=== PATIENT | male | born 1960 | race Caucasian/White ===

== ENCOUNTER → 2017-02-25 10:59 | Outpatient (CLI) | payer MEDICAID, SELFPAY ==
[2017-02-25 12:49] LABS: Alanine Aminotransferase 41 U/L (12-78); Albumin Level 3.7 gm/dL (3.4-5.0); Alkaline Phosphatase 94 U/L (46-116); Anion Gap 10.4 mEq/L (5-15); Aspartate Amino Transferase 23 U/L (15-37); Bilirubin,Total 0.8 mg/dL (0.2-1.0); Blood Urea Nitrogen 17 mg/dL (7-18); Calcium 8.8 mg/dL (8.5-10.1); Carbon Dioxide 30 mmol/L (21.0-32.0); Chloride 102 mmol/L (98-107); Creatinine,Serum 0.93 mg/dL (0.70-1.30); Estimated Glomerular Filt Rate 84 ml/min (>60); GFR (African American) 101 ML/MIN (>60); Globulin 3.7 gm/dl (1.3-3.2); Glucose 117 mg/dL (74-106); Potassium 4.4 mmoL/L (3.5-5.1); Sodium 138 mmol/L (136-145); Total Protein,Serum 7.4 gm/dL (6.4-8.2)
== END ==
PROVIDERS: PCP Family Medicine; Visit Provider Physician Assistant
DX: B19.20 Unspecified viral hepatitis C without hepatic coma (principal); Z79.899 Other long term (current) drug therapy
CPT/HCPCS: 36415; 80053; 82776

== ENCOUNTER → 2017-04-15 08:20 | Outpatient (CLI) | payer MEDICAID, SELFPAY ==
[2017-04-15 09:14] LABS: Alanine Aminotransferase 38 U/L (12-78); Albumin Level 3.9 gm/dL (3.4-5.0); Alkaline Phosphatase 74 U/L (46-116); Anion Gap 7.2 mEq/L (5-15); Aspartate Amino Transferase 22 U/L (15-37); Bilirubin,Total 1.1 mg/dL (0.2-1.0); Blood Urea Nitrogen 25 mg/dL (7-18); Calcium 8.8 mg/dL (8.5-10.1); Carbon Dioxide 31 mmol/L (21.0-32.0); Chloride 103 mmol/L (98-107); Creatinine,Serum 1.03 mg/dL (0.70-1.30); Estimated Glomerular Filt Rate 74 ml/min (>60); GFR (African American) 90 ML/MIN (>60); Globulin 3.9 gm/dl (1.3-3.2); Glucose 93 mg/dL (74-106); Potassium 4.2 mmoL/L (3.5-5.1); Sodium 137 mmol/L (136-145); Total Protein,Serum 7.8 gm/dL (6.4-8.2)
[2017-04-15 10:20] LABS: Basophils % 0.5 % (0.1-2.0); Eosinophils # 0.1 K/mm3 (0.0-0.4); Eosinophils % 1.2 % (0.1-12.0); Hematocrit 44.6 % (42.0-52.0); Hemoglobin 15.3 g/dL (14.1-18.0); Lymphocytes # 2.6 K/mm3 (0.7-4.5); Lymphocytes % 36.1 K/mm3 (10-50); Mean Corpuscular HGB Conc 34.3 g/dL (31.8-35.4); Mean Corpuscular Volume 93.1 fl (80-94); Mean Platelet Volume 8.7 fl (7.4-10.4); Monocytes # 0.5 K/mm3 (0.1-1.0); Monocytes % 6.7 % (1.7-9.3); Neutrophils % 55.4 % (37.0-80.0); Platelet Count 211 K/mm3 (142-424); Red Blood Count 4.79 M/mm3 (4.60-6.20); Red Cell Distribution Width 13.2 % (11.5-17.5); White Blood Count 7.2 K/mm3 (4.8-10.8)
== END ==
PROVIDERS: Visit Provider Physician Assistant
DX: B19.20 Unspecified viral hepatitis C without hepatic coma (principal); Z79.899 Other long term (current) drug therapy
CPT/HCPCS: 36415; 80053; 85025

== ENCOUNTER → 2017-05-24 09:20 | Outpatient (CLI) | payer MEDICAID, SELFPAY ==
[2017-05-24 10:05] LABS: Basophils % 0.5 % (0.1-2.0); Eosinophils # 0.1 K/mm3 (0.0-0.4); Eosinophils % 0.9 % (0.1-12.0); Hematocrit 47.2 % (42.0-52.0); Hemoglobin 16.2 g/dL (14.1-18.0); Lymphocytes # 2.4 K/mm3 (0.7-4.5); Lymphocytes % 38.4 K/mm3 (10-50); Mean Corpuscular HGB Conc 34.3 g/dL (31.8-35.4); Mean Corpuscular Hemoglobin 31.2 pg (27.0-31.2); Mean Corpuscular Volume 90.9 fl (80-94); Mean Platelet Volume 8.3 fl (7.4-10.4); Monocytes # 0.4 K/mm3 (0.1-1.0); Monocytes % 6.4 % (1.7-9.3); Neutrophils # 3.4 K/mm3 (1.8-7.8); Neutrophils % 53.8 % (37.0-80.0); Platelet Count 207 K/mm3 (142-424); Red Blood Count 5.19 M/mm3 (4.60-6.20); White Blood Count 6.3 K/mm3 (4.8-10.8)
[2017-05-24 10:14] LABS: INR 0.99 (0.9-1.1); Prothrombin Time 10.7 seconds (9.4-11.8)
[2017-05-24 12:47] LABS: Alanine Aminotransferase 27 U/L (12-78); Albumin Level 4.1 gm/dL (3.4-5.0); Albumin/Globulin Ratio 1.2 (1.1-1.8); Alkaline Phosphatase 81 U/L (46-116); Anion Gap 14.3 mEq/L (5-15); Aspartate Amino Transferase 20 U/L (15-37); Bilirubin,Total 0.8 mg/dL (0.2-1.0); Blood Urea Nitrogen 18 mg/dL (7-18); Calcium 8.9 mg/dL (8.5-10.1); Carbon Dioxide 26 mmol/L (21.0-32.0); Chloride 107 mmol/L (98-107); Creatinine,Serum 0.92 mg/dL (0.70-1.30); Estimated Glomerular Filt Rate 85 ml/min (>60); GFR (African American) 103 ML/MIN (>60); Globulin 3.5 gm/dl (1.3-3.2); Glucose 100 mg/dL (74-106); Potassium 4.3 mmoL/L (3.5-5.1); Sodium 143 mmol/L (136-145); Total Protein,Serum 7.6 gm/dL (6.4-8.2)
[2017-05-25 14:08] LABS: Hep A Ab, IgM Negative (Negative); Hepatitis B Core Antibody IgM Negative (Negative); Hepatitis B Surface Antigen Negative (Negative)
[2017-05-27 06:15] LABS: Hepatitis C Antibody >11.0 s/co ratio (0.0-0.9)
== END ==
PROVIDERS: Visit Provider Physician Assistant
DX: Z00.00 Encounter for general adult medical examination without abnormal findings (principal); B19.20 Unspecified viral hepatitis C without hepatic coma
CPT/HCPCS: 36415; 80053; 80074; 85025; 85610

== ENCOUNTER → 2017-07-28 09:17 | Outpatient (CLI) | payer MEDICAID, SELFPAY ==
[2017-07-28 10:12] LABS: Basophils % 0.3 % (0.1-2.0); Eosinophils # 0.1 K/mm3 (0.0-0.4); Hematocrit 45.6 % (42.0-52.0); Hemoglobin 15.2 g/dL (14.1-18.0); Lymphocytes % 34.4 K/mm3 (10-50); Mean Corpuscular HGB Conc 33.3 g/dL (31.8-35.4); Mean Corpuscular Hemoglobin 30.2 pg (27.0-31.2); Mean Corpuscular Volume 90.9 fl (80-94); Mean Platelet Volume 7.9 fl (7.4-10.4); Monocytes # 0.4 K/mm3 (0.1-1.0); Monocytes % 7.2 % (1.7-9.3); Neutrophils # 3.3 K/mm3 (1.8-7.8); Neutrophils % 57.1 % (37.0-80.0); Platelet Count 208 K/mm3 (142-424); Red Blood Count 5.01 M/mm3 (4.60-6.20); Red Cell Distribution Width 13.2 % (11.5-17.5); White Blood Count 5.8 K/mm3 (4.8-10.8)
[2017-07-28 12:41] LABS: Alanine Aminotransferase 29 U/L (12-78); Albumin Level 4.2 gm/dL (3.4-5.0); Albumin/Globulin Ratio 1.2 (1.1-1.8); Alkaline Phosphatase 69 U/L (46-116); Anion Gap 13.1 mEq/L (5-15); Aspartate Amino Transferase 22 U/L (15-37); Bilirubin,Total 1.2 mg/dL (0.2-1.0); Blood Urea Nitrogen 21 mg/dL (7-18); Calcium 9.1 mg/dL (8.5-10.1); Carbon Dioxide 29 mmol/L (21.0-32.0); Chloride 104 mmol/L (98-107); Estimated Glomerular Filt Rate 77 ml/min (>60); GFR (African American) 93 ML/MIN (>60); Globulin 3.4 gm/dl (1.3-3.2); Glucose 104 mg/dL (74-106); Potassium 4.1 mmoL/L (3.5-5.1); Sodium 142 mmol/L (136-145); Total Protein,Serum 7.6 gm/dL (6.4-8.2)
== END ==
PROVIDERS: Visit Provider Physician Assistant
DX: Z00.00 Encounter for general adult medical examination without abnormal findings (principal); B19.20 Unspecified viral hepatitis C without hepatic coma
CPT/HCPCS: 36415; 80053; 85025; 87522

== ENCOUNTER 2020-01-13 09:04 | Emergency (ER) | payer OTHER, SELFPAY ==
[2020-01-13 09:04] VITALS: BP 148/100; PULSE 81; RESP 16; TEMP 36.8; O2SAT 98; BMI 31.2
[2020-01-13 09:19] VITALS: BP 143/100; PULSE 74; RESP 16; O2SAT 98; BMI 31.2
--- NOTE | 2020-01-13 09:23 | HMH.EDUTC ---
[facility] [place] Impression: Abdominal pain Qualifiers: Abdominal location: unspecified location Qualified Code(s): R10.9 - Unspecified abdominal pain Disposition: Still a Patient Condition on Discharge: Good Referrals: Osmin Robb MD [Primary Care Provider] - Time of Disposition: 09:33 Medical Decision Making - Jorge A Inquiry Pt receiving controlled substance: No Jorge A was queried for this patient: No Vital Signs: 01/13/20 09:19 Pulse Rate [Right] 74 Respiratory Rate 16 Blood Pressure [Right Arm] 143/100 H Blood Pressure Mean [Right Arm] 114 Blood Pressure Source [Right Arm] Automatic Cuff Blood Pressure Position [Right Arm] Sitting 02 Sat by Pulse Oximetry 98 Oxygen Delivery Method Room Air Medical Decision Narrative: Discussed with patient and he agreed transfer to ED for further work up and evaluation due to abdominal pain and swelling and patient agreed Called ED spoke with Mary CAVAZOS and patient was moved to room 9 [facility] [place] - General Stated complaint: Stomach pain Time Seen by Provider: 01/13/20 09:23 Mode of Arrival: Ambulatory Source of Information: Patient Limitations: No Limitations Description of Symptoms (Recalled from Triage Doc. by RN): Pt c/o sharp abd pains that started last night. Advises it feels like he needs to go to the bathroom but can't. Advises the pain started on the left side and is now through the abd HEENT Symptoms (Recalled from RN notes): No Resp Symptoms (Recalled from RN notes): No Skin Symptoms (Recalled from RN notes): No MS Symptoms (Recalled from RN notes): No Functional Status (Recalled from RN notes): na - History of Present Illness Provider Complaint: Patient states that yesterday he was working and felt a sharp pain in his left upper abdomen area that was lasted about 10 min then started moving throughout his abdomen State that he feels like his stomach is swollen and states feels like he is going to have to go to bathroom and cant States that he did have a med sized BM earlier but didnt help and states that pain is sharp at times but is continuous dull achy like pain. State that he was treated for Hep C years ago and was told he was cleared. 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 I have reviewed the patient's past medical history: Yes ROS Obtained: Yes All systems reviewed & no additional complaints, Yes Systems reviewed as appropriate & no additional complaints - Constitutional Constitutional: Reports system reviewed and no additional complaints, except as docu, Denies body ache, Denies chills, Denies fever(s) - Cardiovascular Cardiovascular: Reports system reviewed and no additional complaints, except as docu - Respiratory Respiratory: Yes system reviewed and no additional complaints, except as docu - Gastrointestinal Gastrointestingal: Reports: abdominal pain, bloating, cramping. Denies: diarrhea, vomiting blood, bright red blood in stools Comments: Reports swelling in abdomen, pain that started on left upper quad that has since moved throughout abdomen and reports bloating like feeling Last BM about 30min ago Physical Exam - General General appearance: alert, in no apparent distress - Respiratory Respiratory exam: Present: normal lung sounds bilaterally. Absent: respiratory distress - Cardiovascular Cardiovascular exam: Present: regular rate, nor
--- NOTE | 2020-01-13 09:37 | CT_ITS ---
PROCEDURE: CT ABDOMEN PELVIS W CON CLINICAL INDICATION: pain Abdominal pain and swelling with cramping on the left side COMPARISON: No exams were available for comparison TECHNIQUE: IV Contrast: 75ML Isovue 370 Oral Contrast None Axial images obtained with sagittal and coronal reformats. All CT scans at the facility use one or more dose reduction, viz: automated exposure control, ma/kV adjustment per patient size (including targeted exams where dose is matched to indication, i.e. head), or iterative reconstruction technique. FINDINGS: LOWER THORAX: No acute finding ABDOMEN & PELVIS: The liver, gallbladder, spleen, adrenal glands, and pancreas have an unremarkable appearance. There is a 12 mm cortical cyst of the right kidney. There is an exophytic 2.4 cm cyst of the left kidney. No renal or ureteral calculi. No hydronephrosis. No evidence of appendicitis intestinal obstruction or free air. There are scattered air-fluid levels within nondistended large bowel. Colonic diverticulosis is present. There is some minimal haziness of the pericolic fat in the sigmoid region with minimal thickening of a sigmoid diverticula suggesting mild acute diverticulitis. No abscess or perforation apparent. There is increased density in the right inguinal area consistent with prior inguinal hernia repair. No acute bony findings are evident. There is a bone island in the right ilium IMPRESSION: 1. Mild sigmoid diverticulitis with colonic diverticulosis. No abscess or perforation 2. Bilateral renal cysts Dictated by: Miguel Alva MD 01/13/2020 12:39 Miguel Alva MD in [place] 01/13/2020 12:39
[2020-01-13 09:46] LABS: Microscopic, Urine URINE MICROSCOPIC (MICROSCOPIC)
[2020-01-13 09:53] LABS: Basophils % 0.4 % (0.1-2.0); Eosinophils # 0.1 K/mm3 (0.0-0.4); Eosinophils % 0.9 % (0.1-12.0); Hematocrit 48.2 % (42.0-52.0); Hemoglobin 16.1 g/dL (14.1-18.0); Lymphocytes # 3.2 K/mm3 (0.7-4.5); Lymphocytes % 32.4 % (10-50); Mean Corpuscular HGB Conc 33.4 g/dL (31.8-35.4); Mean Corpuscular Hemoglobin 30.9 pg (27.0-31.2); Mean Corpuscular Volume 92.3 fl (80-94); Mean Platelet Volume 8.4 fl (7.4-10.4); Monocytes # 0.6 K/mm3 (0.1-1.0); Monocytes % 5.7 % (1.7-9.3); Neutrophils # 5.9 K/mm3 (1.8-7.8); Neutrophils % 60.4 % (37.0-80.0); Platelet Count 239 K/mm3 (142-424); Red Blood Count 5.22 M/mm3 (4.60-6.20); Red Cell Distribution Width 13.7 % (11.5-17.5); White Blood Count 9.8 K/mm3 (4.8-10.8)
[2020-01-13 09:55] LABS: Chloride 102 mmol/L (98-107); Potassium 4.7 mmoL/L (3.5-5.1); Sodium 140 mmol/L (136-145)
[2020-01-13 09:58] LABS: Alanine Aminotransferase 26 U/L (12-78); Albumin Level 4.9 g/dl (3.5-5.0); Albumin/Globulin Ratio 1.5 (1.1-1.8); Alkaline Phosphatase 74 U/L (38-126); Amylase 73 U/L (30-110); Anion Gap 11.7 mEq/L (5-15); Aspartate Amino Transferase 30 U/L (17-59); Bilirubin,Total 0.8 mg/dl (0.2-1.3); Blood Urea Nitrogen 15 mg/dl (9-20); Calcium 9.7 mg/dl (8.4-10.2); Carbon Dioxide 31 mmol/L (22.0-30.0); Creatinine Clearance Estimated 142 mL/min (50-200); Estimated Glomerular Filt Rate 86 ml/min (>60); GFR (African American) 105 ML/MIN (>60); Globulin 3.2 g/dL (1.3-3.2); Glucose 104 mg/dl (74-100); Lipase 115 U/L (23-300); Total Protein,Serum 8.1 g/dl (6.3-8.2)
--- NOTE | 2020-01-13 09:59 | HMH.EDGENADL ---
ED Disposition Clinical Impression: Diverticulitis Disposition: Home, Self-Care Condition on Discharge: Good Instructions: DI for Diverticulitis Additional Instructions: Cipro and Flagyl as prescribed. Tylenol or ibuprofen for pain. Return to the emergency department if severe pain, repetitive vomiting, or fever greater than 100.5 degrees. Follow-up with your primary care provider next week. Prescriptions: Ciprofloxacin HCl [Ciprofloxacin 500mg Tab] 500 mg PO BID #20 tab Transmission Status: Pending to [facility] # metroNIDAZOLE [Flagyl] 500 mg PO TID #30 tab Transmission Status: Pending to [facility] # Referrals: Osmin Robb MD [Primary Care Provider] - - Critical Care Critical Care Time: No Attestation: On 01/13/20, the high probability of a clinically significant, sudden or life threatening deterioration of the following system(s) required my full and direct attention, intervention and personal management. The time I documented below is in addition to time spent performing reported procedures but includes the following listed in this critical care notation. Medical Decision Making - Jorge A Inquiry Pt receiving controlled substance: No Vital Signs: 01/13/20 09:04 01/13/20 09:19 Temperature 98.2 F Temperature Source Oral Pulse Rate [Right] 81 74 Respiratory Rate 16 16 Blood Pressure [Right Arm] 148/100 H 143/100 H Blood Pressure Mean [Right Arm] 116 114 Blood Pressure Source [Right Arm] Automatic Cuff Blood Pressure Position [Right Arm] Sitting Sitting 02 Sat by Pulse Oximetry 98 98 Oxygen Delivery Method Room Air Room Air - Lab Data Lab Results 01/13/20 09:30: Urine Color Yellow, Urine Appearance Clear, Urine pH 6.0, Ur Specific Anderson 1.020, Urine Protein Negative, Urine Glucose (UA) Negative, Urine Ketones Negative, Urine Blood Negative, Urine Nitrate Negative, Urine Bilirubin Negative, Urine Urobilinogen 0.2, Ur Leukocyte Esterase Negative, Urine RBC Occasional, Urine WBC 3-5, Ur Squamous Epith Cells None, Urine Bacteria Trace 01/13/20 09:40: WBC 9.8, RBC 5.22, Hgb 16.1, Hct 48.2, MCV 92.3, MCH 30.9, MCHC 33.4, RDW 13.7, Plt Count 239, MPV 8.4, Neut % (Auto) 60.4, Lymph % (Auto) 32.4, [place] % (Auto) 5.7, Eos % (Auto) 0.9, Baso % (Auto) 0.4, Neut # (Auto) 5.9, Lymph # (Auto) 3.2, [place] # (Auto) 0.6, Eos # (Auto) 0.1, Baso # (Auto) 0.0 01/13/20 09:40: Sodium 140, Potassium 4.7, Chloride 102, Carbon Dioxide 31 H, Anion Gap 11.7, BUN 15, Creatinine 0.90, Estimated Creat Clear 142, Estimated GFR 86, Est GFR ( Amer) 105, Glucose 104 H, Calcium 9.7, Total Bilirubin 0.8, AST 30, ALT 26, Alkaline Phosphatase 74, Total Protein 8.1, Albumin 4.9, Globulin 3.2, Albumin/Globulin Ratio 1.5, Amylase 73, Lipase 115 Result diagrams: 01/13/20 09:40 01/13/20 09:40 Orders (Tests/Meds): ED MEDICATIONS Generic Name Dose Route Start Last Admin Trade Name Frepenny PRN Reason Stop Dose Admin Sodium Chloride 8 ml 01/13/20 09:44 01/13/20 09:47 Sodium Chloride 0.9% 10ml Vial IV 02/12/20 09:43 8 ml NEEDED PRN Administration dilute pepcid Discontinued Medications Generic Name Dose Route Start Last Admin Trade Name Freq PRN Reason Stop Dose Admin Famotidine 20 mg 01/13/20 09:44 01/13/20 09:47 Famotidine 20mg/2ml Vial IV 01/13/20 09:45 20 mg ONCE ONE Administration Iopamidol 75 ml 01/13/20 10:31 01/13/20 10:32 Iopamidol-370 (76%);100ml Bottle IV 01/13/20 10:32 75 ml ONCE ONE Administration Ondansetron HCl 4 mg 01/13/20 09:44 01/13/20 09:47 Ondansetron 4mg/2ml Vial IV 01/13/20 09:45 4 mg ONCE ONE Administration Sodium Chloride 10 ml 01/13/20 10:31 01/13/20 10:32 Sodium Chloride 0.9% 10ml Syr (Rad Only) IV 01/13/20 10:32 10 ml ONCE ONE Administration ORDERS Category Date Time Status CT abdomen pelvis w con Stat Cat Scan 01/13/20 09:37 Taken - CT Data CT Scan: Abdomen, Pelvis Time
[2020-01-13 10:20] LABS: Appearance,Urine CLEAR (Clear); Bilirubin,Urine Negative (Negative); Blood, Urine Negative (Negative); Color,Urine YELLOW (Yellow); Glucose,Urine (UA) Negative (Negative); Ketones,Urine Negative (Negative); Leukocyte Esterase,Urine Negative (Negative); Nitrate,Urine Negative (Negative); Protein,Urine Negative (Negative); Urobilinogen,Urine 0.2 EU/dl (0.2)
[2020-01-13 10:40] LABS: Bacteria,Urine Trace /lpf; RBC,Urine Occasional #/hpf (0-3)
[2020-01-13 11:41] VITALS: BP 145/90; PULSE 78; RESP 18; TEMP 36.6; O2SAT 98
== END 2020-01-13 11:43 | disposition home or self-care (01) ==
LOC: UTC 09:07 → ER 09:22
PROVIDERS: Emergency Provider Emergency Medicine; PCP Family Medicine
DX: K57.92 Diverticulitis of intestine, part unspecified, without perforation or abscess without bleeding (principal)
CPT/HCPCS: 74177; 80053; 81001; 82150; 83690; 85025; 96374; 96375; 99283; J2405; Q9967

== ENCOUNTER 2020-05-20 16:20 | Emergency (ER) | payer OTHER, SELFPAY ==
[2020-05-20 16:40] VITALS: BP 132/85; PULSE 81; RESP 16; TEMP 36.7; O2SAT 97; BMI 29.2
--- NOTE | 2020-05-20 16:45 | HMH.EDUTC ---
[facility] [place] Impression: COVID-19 virus test result unknown Disposition: Home, Self-Care Condition on Discharge: Good Instructions: DI for COVID-19 (Suspected or Confirmed ), How to Care for Someone with COVID-19, Preventing the Spread of Coronavirus Discharge Instructions Additional Instructions: self isolate until test results are known to be neg Referrals: Osmin Robb MD [Primary Care Provider] - Time of Disposition: 16:48 Medical Decision Making - Jorge A Inquiry Pt receiving controlled substance: No Vital Signs: 05/20/20 16:40 Temperature 98.0 F Temperature Source Oral Pulse Rate [Right Brachial] 81 Respiratory Rate 16 Blood Pressure [Right Arm] 132/85 Blood Pressure Mean [Right Arm] 100 Blood Pressure Source [Right Arm] Automatic Cuff Blood Pressure Position [Right Arm] Sitting 02 Sat by Pulse Oximetry 97 Oxygen Delivery Method Room Air Orders (Tests/Meds): ORDERS Category Date Time Status Covid-19 Nasal PCR ([facility]) Routine Lab 05/20/20 16:40 Received [facility] [place] HPI - General Chief complaint: [facility] Stated complaint: Covid test Time Seen by Provider: 05/20/20 16:46 Mode of Arrival: Ambulatory Source of Information: Patient Limitations: No Limitations Description of Symptoms (Recalled from Triage Doc. by RN): covid test HEENT Symptoms (Recalled from RN notes): No Resp Symptoms (Recalled from RN notes): No Skin Symptoms (Recalled from RN notes): No MS Symptoms (Recalled from RN notes): No Functional Status (Recalled from RN notes): n/a - History of Present Illness Provider Complaint: 60 yr old male presnts for covid test. pt states no symptoms tested positive for covid - Related Data Home Medications Medication Instructions Recorded Confirmed buPROPion HCL [Wellbutrin XL] 300 mg PO DAILY 01/13/20 05/20/20 Allergies Allergy/AdvReac Type Severity Reaction Status Date / Time No Known Allergies Allergy Verified 05/20/20 16:32 - Worker's Comp Is this a Worker's Comp case?: No [facility] History - Hepatitis A Screen Drug use history?: No High risk sexual behaviors?: No History of sexually transmitted infection?: No Currently employed?: No Childcare worker?: No Do you have indoor plumbing?: Yes Do you have electricity?: Yes Attestation statement:: This patient has been screened for Hepatitis A risk factors. I have reviewed the patient's past medical history: Yes Medical History: Denies:: Internal Pacemaker Other Surgeries: No: Pacemaker - Social History Smoking Status: Never smoker Alcohol Intake: never Occupational Status: employed Housing: house Household Members: spouse, family ROS Obtained: Yes Systems reviewed as appropriate & no additional complaints - Constitutional Constitutional: Reports system reviewed and no additional complaints, except as docu, Denies fever(s) - Eyes Eyes: Reports system reviewed and no additional complaints, except as docu, Denies change in vision - ENT Ears, Nose, Mouth, and Throat: Reports system reviewed and no additional complaints, except as docu, Denies sore throat - Cardiovascular Cardiovascular: Reports system reviewed and no additional complaints, except as docu, Denies chest pain at rest - Respiratory Respiratory: Reports system reviewed and no additional complaints, except as docu, Denies change in phlegm color - Gastrointestinal Gastrointestingal: Reports: system reviewed and no additional complaints, except as docu. Denies: bloating - Genitourinary Male Genitourinary: Reports system reviewed and no additional complaints, except as docu - Musculoskeletal Musculoskeletal: Reports system reviewed and no additional complaints, except as docu, Denies limited range of motion - Integumentary/Breasts Skin/Breast: Reports system reviewed and no additional complaints, except as docu, Denies rash - Neurologic Neurologic: Reports system reviewed and no additional com
[2020-05-20 16:56] VITALS: BP 132/85; PULSE 81; RESP 16; TEMP 36.7; O2SAT 97
== END 2020-05-20 16:56 | disposition home or self-care (01) ==
PROVIDERS: Emergency Provider Nurse Practitioner Family; PCP Family Medicine
DX: Z20.822 Contact with and (suspected) exposure to COVID-19 (principal)
CPT/HCPCS: 99202; G0463; U0003

== ENCOUNTER 2020-06-05 10:36 | Emergency (ER) | payer OTHER, SELFPAY ==
[2020-06-05 10:59] VITALS: BP 134/87; PULSE 83; RESP 19; TEMP 37; O2SAT 98; BMI 29.8
--- NOTE | 2020-06-05 11:18 | HMH.EDUTC ---
[facility] [place] Disposition Clinical Impression: Encounter for laboratory testing for COVID-19 virus Disposition: Home, Self-Care Condition on Discharge: Good Instructions: DI for COVID-19 (Suspected or Confirmed ), Coronavirus Disease 2019, Preventing the Spread of Coronavirus Discharge Instructions Additional Instructions: *Monitor Temp, Over the counter Motrin or Tylenol as directed/as needed Tylenol every 4 hours and Motrin every 6 hours (as long as your family doctor has told you that you can take it) for fever or pain. and straight to ER if unable to lower temp less than 101.0 after medication given Follow up IMMEDIATELY for new or worsening symptoms or no Noticeable improvement over the next 48-72 hours. 911 for difficulty breathing or swallowing You were tested for today for COVID19 your test result should be back in the next 24-48 hours, you may call to the [facility] to see if your test results are back in the next 48 hours [phone] [facility] hours are 9am-9pm You was given a handout with instructions for Self Quarantine and Self isolation for while you wait on test results and what to do if they are positive If you are positive the Health Dept will be contacting you also Prescriptions: Fluticasone Propionate [Flonase 50mcg nasal spray 16gm] 1 spr NS DAILY #1 bottle Transmission Status: Pending to [employer] #[id number] Referrals: Tree Mckinney MD [Primary Care Provider] - As needed Time of Disposition: 11:24 Medical Decision Making - Jorge A Inquiry Pt receiving controlled substance: No Jorge A was queried for this patient: No Vital Signs: 06/05/20 10:59 Temperature 98.6 F Temperature Source Oral Pulse Rate [Right Brachial] 83 Respiratory Rate 19 Blood Pressure [Right Arm] 134/87 Blood Pressure Mean [Right Arm] 102 Blood Pressure Source [Right Arm] Automatic Cuff Blood Pressure Position [Right Arm] Sitting 02 Sat by Pulse Oximetry 98 Oxygen Delivery Method Room Air Orders (Tests/Meds): ORDERS Category Date Time Status Covid-19 Nasal PCR ([facility]) Routine Lab 06/05/20 11:00 Received [facility] [place] HPI - General Stated complaint: covid test Time Seen by Provider: 06/05/20 11:18 Mode of Arrival: Ambulatory Source of Information: Patient Limitations: No Limitations Description of Symptoms (Recalled from Triage Doc. by RN): Covid test- cough, fever, body aches x2 days. was positive 3 weeks ago. 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 States that his was positive for COVID a few weeks ago States that he has been body aches, chills, feeling flush and unsure if he has had fever or not so he wanted to get tested - Related Data Home Medications Medication Instructions Recorded Confirmed buPROPion HCL [Wellbutrin XL] 300 mg PO DAILY 01/13/20 05/20/20 Previous Rx's Medication Instructions Recorded Fluticasone Propionate [Flonase 1 spr NS DAILY #1 bottle 06/05/20 50mcg nasal spray 16gm] Allergies Allergy/AdvReac Type Severity Reaction Status Date / Time No Known Allergies Allergy Verified 05/20/20 16:32 - Worker's Comp Is this a Worker's Comp case?: No [facility] History - Hepatitis A Screen Drug use history?: No High risk sexual behaviors?: No History of sexually transmitted infection?: No Currently employed?: No Childcare worker?: No Do you have indoor plumbing?: Yes Do you have electricity?: Yes Attestation statement:: This patient has been screened for Hepatitis A risk factors. I have reviewed the patient's past medical history: Yes Medical History: Denies:: Internal Pacemaker Other Surgeries: No: Pacemaker - Social History Smoking Status: Never smoker Alcohol I
[2020-06-05 11:36] VITALS: BP 134/87; PULSE 83; RESP 19; TEMP 37; O2SAT 98
--- NOTE | 2020-06-05 16:46 | PC.NURSE ---
PT NOTIFIED OF POSITIVE COVID RESULTS
== END 2020-06-05 11:37 | disposition home or self-care (01) ==
PROVIDERS: Emergency Provider Nurse Practitioner; PCP Family Medicine
DX: U07.1 COVID-19 (principal)
CPT/HCPCS: 99202; G0463; U0003

== ENCOUNTER → 2020-06-14 09:30 | Outpatient (CLI) | payer OTHER, SELFPAY ==
--- NOTE | 2020-06-14 09:40 | XR_ITS ---
PROCEDURE: XR CHEST PORTABLE CLINICAL HISTORY: COVID OUTPATIENT, PNEUMONIA DUE TO INFECTIOUS ORGANISM COMPARISON: No exams were available for comparison FINDINGS: The cardiomediastinal silhouette and pulmonary vascularity are within normal limits. There is increased density present in the right upper and right lower lung zone with ground-glass infiltrate in the left midlung. No obvious effusions. No acute bony abnormalities. IMPRESSION: Bilateral pneumonia Dictated by: Miguel Alva MD 06/14/2020 10:11 Miguel Alva MD in [place] 06/14/2020 10:11
== END ==
PROVIDERS: PCP Family Medicine; Visit Provider Family Medicine
DX: J18.9 Pneumonia, unspecified organism (principal)
CPT/HCPCS: 71045

== ENCOUNTER 2020-06-16 11:10 | Outpatient (CLI) | payer OTHER, SELFPAY ==
[2020-06-16] VITALS (10 sets, daily range): BP systolic 117–133; BP diastolic 70–89; PULSE 65–94; RESP 15–19; TEMP 36.7–36.8; O2SAT 93–95
== END 2020-06-16 14:20 | disposition home or self-care (01) ==
PROVIDERS: PCP Family Medicine; Visit Provider Family Medicine
DX: U07.1 COVID-19 (principal)
CPT/HCPCS: 96365

== ENCOUNTER → 2020-06-20 08:33 | Outpatient (CLI) | payer OTHER, SELFPAY ==
--- NOTE | 2020-06-20 08:45 | XR_ITS ---
PROCEDURE: XR CHEST PORTABLE CLINICAL HISTORY: COVID OUTPATIENT COMPARISON: CR XR CHEST PORTABLE from 06/14/2020 FINDINGS: Cardiac size and central pulmonary vasculature within normal limits. Previously noted peripheral opacities in the right lung demonstrate marginal improvement with residual changes in the lungs bilaterally. Minor hazy infiltrates are again noted content, unchanged. No lobar consolidation, pleural effusions or pneumothorax. Degenerative changes of the visualized thoracic spine. Old rib fractures on the right. IMPRESSION: Marginal improvement in the right lung opacity. Continued close follow-up is recommended. Dictated by: Wendy Smith 06/20/2020 09:12 Wendy Smith in [place] 06/20/2020 09:12
== END ==
PROVIDERS: PCP Family Medicine; Visit Provider Family Medicine
DX: J18.9 Pneumonia, unspecified organism (principal); R06.02 Shortness of breath
CPT/HCPCS: 71045

== ENCOUNTER → 2020-10-31 09:11 | Outpatient (POV) | payer OTHER, SELFPAY | PROVIDERS: Visit Provider Dermatology | DX: Z00.00 Encounter for general adult medical examination without abnormal findings (principal) ==

== ENCOUNTER 2021-04-11 16:08 | Emergency (ER) | payer SELFPAY ==
[2021-04-11 16:21] VITALS: BP 168/101; PULSE 101; RESP 18; TEMP 37; O2SAT 97; BMI 31.2
--- NOTE | 2021-04-11 16:56 | HMH.EDUTC ---
[facility] [place] Disposition Clinical Impression: Sinusitis Qualifiers: Sinusitis location: unspecified location Chronicity: acute Recurrence: non-recurrent Qualified Code(s): J01.90 - Acute sinusitis, unspecified Disposition: Home, Self-Care Condition on Discharge: Good Instructions: Sinusitis, DI for Sinusitis Additional Instructions: Drink plenty of fluids. Take tylenol or ibuprofen for pain or fever. Take the medications as directed. Follow up with your regular doctor. GO TO THE ER FOR ANY WORSENING SYMPTOMS Quarantine until you know the results of your covid-19 test. Notify your school or workplace of your results and follow their instructions regarding return to work/school. Don't start the oral steroids until tomorrow, since you had the shot here today. Prescriptions: Benzonatate [Benzonatate 100mg cap] 100 mg PO TIDP PRN #30 cap PRN Reason: Cough Transmission Status: Received by [id number] methylPREDNISolone [Medrol] 4 mg PO DIRECTED 6 Days #21 packet Transmission Status: Received by [id number] Azithromycin [Z-Be 250mg Tab*] 250 mg PO UD DOSE PK #6 tab Transmission Status: Received by [id number] Referrals: Rigo Barnes MD [Primary Care Provider] - Forms: Work/School Release Time of Disposition: 17:38 Medical Decision Making - Medical Records Medical records reviewed: No: I reviewed the patient's medical records. - Jorge A Inquiry Pt receiving controlled substance: No Vital Signs: 04/11/21 16:21 04/11/21 17:41 Temperature 98.6 F 98.6 F Temperature Source Oral Pulse Rate 101 H Pulse Rate [Left] 101 H Respiratory Rate 18 18 Blood Pressure 168/101 H Blood Pressure [Right Arm] 168/101 H Blood Pressure Mean [Right Arm] 123 02 Sat by Pulse Oximetry 97 - Lab Data Lab results reviewed: Yes: I reviewed the patient's lab results. Orders (Tests/Meds): ED MEDICATIONS Discontinued Medications Generic Name Dose Route Start Last Admin Trade Name Freq PRN Reason Stop Dose Admin Ceftriaxone Sodium 1 gm 04/11/21 17:01 04/11/21 17:09 Ceftriaxone 1gm Vial IM 04/11/21 17:02 1 gm ONCE ONE Administration Lidocaine HCl 0 ml 04/11/21 17:01 04/11/21 17:09 Lidocaine 1% 5ml Pf Vial IM 04/11/21 17:02 2 ml ONCE ONE Administration Methylprednisolone Sodium Succinate 125 mg 04/11/21 17:01 04/11/21 17:09 Methylprednisolone Sod Succ 125mg Vial IM 04/11/21 17:02 125 mg ONCE ONE Administration [facility] [place] HPI - General Stated complaint: CRESPO runny nose congestion Time Seen by Provider: 04/11/21 16:56 Mode of Arrival: Ambulatory Source of Information: Patient Limitations: No Limitations Description of Symptoms (Recalled from Triage Doc. by RN): pt c/o a CRESPO, congestion and nasal drainage. x3 days. HEENT Symptoms (Recalled from RN notes): Yes Resp Symptoms (Recalled from RN notes): No Skin Symptoms (Recalled from RN notes): No MS Symptoms (Recalled from RN notes): No Functional Status (Recalled from RN notes): wnl - History of Present Illness Provider Complaint: He states that he has had sinus congestion and sinus drainage for the past 1 week. - Related Data Home Medications Medication Instructions Recorded Confirmed buPROPion HCL [Wellbutrin XL] 300 mg PO DAILY 01/13/20 05/20/20 Previous Rx's Medication Instructions Recorded Fluticasone Propionate [Flonase 1 spr NS DAILY #1 bottle 06/05/20 50mcg nasal spray 16gm] Azithromycin [Z-Be 250mg Tab*] 250 mg PO UD DOSE PK #6 tab 04/11/21 Benzonatate [Benzonatate 100mg 100 mg PO TIDP PRN #30 cap 04/11/21 cap] methylPREDNISolone [Medrol] 4 mg PO DIRECTED 6 Days #21 04/11/21 packet Allergies Allergy/AdvReac Type Severity Reaction Status Date / Time No Known Allergies Allergy Verified 05/20/20 16:32 - Worker's Comp Is this a Worker's Comp case?: No [facility] History - Hepatitis A Screen Drug use history?: No High risk sexual behavio
[2021-04-11 17:41] VITALS: BP 168/101; PULSE 101; RESP 18; TEMP 37
== END 2021-04-11 17:55 | disposition home or self-care (01) ==
LOC: UTC 16:17
PROVIDERS: Emergency Provider Nurse Practitioner Family; PCP Family Medicine
DX: J01.90 Acute sinusitis, unspecified (principal); Z20.822 Contact with and (suspected) exposure to COVID-19
CPT/HCPCS: 96372; 99212; C9803; G0463; J0696; U0003; U0005

== ENCOUNTER → 2021-09-18 13:19 | Outpatient (CLI) | payer BC, SELFPAY ==
--- NOTE | 2021-09-18 13:28 | XR_ITS ---
FINAL REPORT CLINICAL HISTORY: Fell x 6 wks ago, pain @ 3rd digit FINDINGS: LEFT HAND 3 views of the left hand were obtained. There is no acute fracture or dislocation. There is mild degenerative change. There is a chronic calcification in the wrist seen on the lateral view which may represent a chronic triquetral fracture. Soft tissues are unremarkable. IMPRESSION: No acute bony abnormality. Chronic calcification may represent a chronic triquetral fracture. Reviewed, Interpreted and Dictated by Skip Muñoz III, MD Transcribed by Leah Hilliard Authenticated and . [facility]
== END ==
PROVIDERS: PCP Family Medicine; Visit Provider Orthopaedic Surgery
DX: M79.642 Pain in left hand (principal)
CPT/HCPCS: 73130

== ENCOUNTER → 2022-08-27 10:07 | Outpatient (CLI) | payer BC, SELFPAY ==
[2022-08-27 10:35] VITALS: PULSE 74; PULSE 79
== END ==
PROVIDERS: PCP Family Medicine; Visit Provider Nurse Practitioner Family
DX: R06.02 Shortness of breath (principal)
CPT/HCPCS: 94060; 94640

== ENCOUNTER → 2022-09-12 10:01 | Outpatient (CLI) | payer BC, SELFPAY ==
[2022-09-12 10:34] LABS: Basophils % 0.6 % (0.1-2.0); Eosinophils # 0.1 K/mm3 (0.0-0.4); Eosinophils % 1.5 % (0.1-12.0); Hematocrit 46.6 % (42.0-52.0); Hemoglobin 14.9 g/dL (14.1-18.0); Lymphocytes # 2.2 K/mm3 (0.7-4.5); Lymphocytes % 35.3 % (10-50); Mean Corpuscular Hemoglobin 29.7 pg (27.0-31.2); Mean Corpuscular Volume 92.7 fl (80-94); Mean Platelet Volume 8.6 fl (7.4-10.4); Monocytes # 0.4 K/mm3 (0.1-1.0); Monocytes % 6.5 % (1.7-9.3); Neutrophils # 3.4 K/mm3 (1.8-7.8); Platelet Count 198 K/mm3 (142-424); Red Blood Count 5.02 M/mm3 (4.60-6.20); Red Cell Distribution Width 14.1 % (11.5-17.5); White Blood Count 6.1 K/mm3 (4.8-10.8)
[2022-09-12 11:04] LABS: D-Dimer 0.37 ug/mL (0.0-0.5)
[2022-09-12 11:43] LABS: Alanine Aminotransferase 28 U/L (12-78); Albumin Level 4.7 g/dl (3.5-5.0); Alkaline Phosphatase 76 U/L (38-126); Anion Gap 13.7 mEq/L (5-15); Aspartate Amino Transferase 29 U/L (17-59); Bilirubin,Unconjugated 1.1 mg/dL (0.0-1.1); Blood Urea Nitrogen 17 mg/dl (9-20); Calcium 9.4 mg/dl (8.4-10.2); Carbon Dioxide 28 mmol/L (22.0-30.0); Chloride 105 mmol/L (98-107); Chol/HDL Ratio 6.4 (1-3.5); Cholesterol 225 mg/dl (140-200); Estimated Glomerular Filt Rate 76 ml/min (>60); GFR (African American) 92 ML/MIN (>60); Glucose 106 mg/dl (74-100); HDL Cholesterol 35 mg/dl (40-60); Magnesium 1.8 mg/dl (1.6-2.3); Potassium 4.7 mmoL/L (3.5-5.1); Sodium 142 mmol/L (136-145); Total Protein,Serum 7.5 g/dl (6.3-8.2); Triglycerides 166 mg/dl (30-150); VLDL Cholesterol 33 mg/dL (0-40)
[2022-09-12 11:52] LABS: NT Pro Brain Natriuretic Pep. < 20.0 pg/mL (0-125)
[2022-09-12 12:14] LABS: Thyroid Stimulating Hormone 2.15 uIU/mL (0.465-4.68)
== END ==
PROVIDERS: PCP Family Medicine; Visit Provider Internal Medicine
DX: R06.09 Other forms of dyspnea (principal); R42 Dizziness and giddiness; J44.9 Chronic obstructive pulmonary disease, unspecified; R94.31 Abnormal electrocardiogram [ECG] [EKG]; E66.9 Obesity, unspecified; Z68.31 Body mass index [BMI] 31.0-31.9, adult; Z87.891 Personal history of nicotine dependence
CPT/HCPCS: 36415; 80048; 80061; 80076; 83735; 83880; 84439; 84443; 85025; 85378

== ENCOUNTER → 2022-09-20 06:16 | Outpatient (CLI) | payer BC, SELFPAY ==
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
--- NOTE | 2022-09-20 06:23 | NM_ITS ---
APPROVED REPORT Exam: Nuclear Stress Test Indication: [id number] Patient Location: Outpatient Stress Tech: Guerita Young [place] Tech:Dorcas Walker ABDIASClemencia RT(R)(N) Ht: 6 ft 3 in Wt: 250 lbs HR: 76 bpm BP: 113/72 mmHg BSA: 2.41 m2 Rhythm: NSR TID: 1.13 BMI: 31.2 History: soa Procedure: Patient exercised on Yunier protocol 9:20 minutes and sec, resting heart rate 76 bpm, resting blood pressure 113/72 mmHg, with exercise maximum heart rate achived was 134 bpm which is 85 % of the maximum predicted heart rate and blood pressure was 165/82 mmHg. Test was stopped due to soa and fatigue. Patient denied any complaint of chest pain. Patient has average exercise capacity, achieved 10.1 METs of workload on treadmill, the blood pressure response to exercise was normal. Cardiac Stress and Resting SPECT Images: Cardiac Stress and Resting SPECT images were obtained using technetium 99m Myoview 30.4 mCi stress and 10.50 mCi at rest. Stress imaging in supine positions demonstrate medium sized, moderate, fixed perfusion defect in the basal to mid inferior to inferior septal LV manzo. This is no longer visualized with prone stress imaging. Findings are suggestive of possible diaphragmatic attenuation, but true perfusion defect cannot be entirely ruled out. Gated imaging demonstrates low normal global LV systolic function. LVEF is calculated at 52%. Conclusion: Medium sized, moderate, fixed perfusion defect in the basal to mid inferior to inferior septal LV manzo. This is no longer visualized with prone stress imaging. Findings are suggestive of possible diaphragmatic attenuation, but true perfusion defect cannot be entirely ruled out. Gated imaging demonstrates low normal global LV systolic function. LVEF is calculated at 52%. Electronically signed by : Nisreen Lam, 09/23/2022 12:39:08
== END ==
LOC: RAD 06:17
PROVIDERS: PCP Family Medicine; Visit Provider Internal Medicine
DX: R06.09 Other forms of dyspnea (principal); R42 Dizziness and giddiness; J44.9 Chronic obstructive pulmonary disease, unspecified; R94.31 Abnormal electrocardiogram [ECG] [EKG]; E66.9 Obesity, unspecified; Z68.31 Body mass index [BMI] 31.0-31.9, adult; Z87.891 Personal history of nicotine dependence
CPT/HCPCS: 78452; 93017; A9502

== ENCOUNTER → 2022-10-04 09:20 | Outpatient (CLI) | payer BC, SELFPAY ==
--- NOTE | 2022-10-04 09:38 | CA_ITS ---
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, HX-COVID-19, COPD 2D Dimensions Aortic Root 3.26 cm LA Volume 77.80 mL Left Atrium 4.54 cm LA Volume Index 31.40 mL/m2 (M/F) 16-34 LVOT 1.99 cm (M/F) 1.5-2.5 M-Mode Dimensions RVDd 2.77 cm (0.9-2.6) LA Diam 4.08 cm (1.9-4.0) LVDd 5.63 cm (3.5-5.7) Ao Diam 3.39 cm (2.0-3.7) LVDs 4.10 cm (3.5-5.7) IVSd 0.88 cm (0.6-1.1) PWd 0.92 cm (0.6-1.1) EF (Teich) 52.30% EPSs 0.89 cm FS 27.20% EDV (Teich) 155.60 mL TAPSE 2.06 (<1.7) ESV (Teich) 74.20 mL LV Diastology E Decel Time 147.00 (160-240 msec) E/A Ratio 1.42 MED E' 8.30 (< 7 cm/sec) MED A' 12.90 cm/s E'/MED E' Ratio 14.01 (>14) LAT E' 11.00 (<10 cm/sec) LAT A' 10.10 cm/s E/LAT E' Ratio 10.57 (>14) Aortic Valve LVOT Max 79.00 (70-110 cm/s) LVOT VTI 17.31 cm AoV Peak Calvin. 138.00 (50-130 cm/s) AO Peak GR. 7.70 mmHg AO Mean GR. 3.80 (<5 mmHg) AO VTI 27.13 (18-25 cm) MAURI (VTI) 1.98 (2.5-4.5 cm2) Mitral Valve MV A Velocity 82.00 (40-130 cm/s) E/A Ratio 1.42 MV Decel. Time 147.00 (160-240 ms) Pulmonary Valve PV Peak Velocity 75.00 (50-150 cm/s) Left Ventricle The left ventricle is normal size. The left ventricular systolic function is normal. The left ventricular ejection fraction is within the normal range. There is normal left ventricular wall thickness. There is normal LV segmental wall motion. The left ventricular diastolic function is normal. LVEF is 55%. Right Ventricle The right ventricle is mildly dilated. The right ventricular systolic function is normal. Atria The left atrium size is normal. The right atrium size is normal. There is no Doppler evidence of interatrial shunt. Aortic Valve The aortic valve opens well. There is no aortic valvular stenosis. No aortic regurgitation is present. Mitral Valve The mitral valve is normal in structure. No evidence of mitral valve stenosis. There is no mitral valve regurgitation noted. Tricuspid Valve The tricuspid valve leaflets are thin and pliable. Trace tricuspid regurgitation. There is insufficient TR jet to estimate RVSP. Pulmonic Valve The pulmonary valve is normal in structure. Trace pulmonic regurgitation. Great Vessels The aortic root is normal in size. The ascending aorta is normal in size. IVC is normal in size and collapses >50% with inspiration. Pericardium There is no pericardial effusion. Other Information Study Quality: Adequate Conclusion Normal biventricular systolic function. Mild RV dilation. No significant valvular disease. Electronically signed by : Nisreen Lam, 10/07/2022 16:45:31
== END ==
LOC: RT 09:20
PROVIDERS: PCP Family Medicine; Visit Provider Internal Medicine
DX: R06.09 Other forms of dyspnea (principal); R42 Dizziness and giddiness; R94.31 Abnormal electrocardiogram [ECG] [EKG]; J44.9 Chronic obstructive pulmonary disease, unspecified; E66.9 Obesity, unspecified; Z68.31 Body mass index [BMI] 31.0-31.9, adult; Z87.891 Personal history of nicotine dependence
CPT/HCPCS: 93306